=== PATIENT | female | born 1965 | race African-American/Black ===

== ENCOUNTER 2018-04-23 11:45 | Emergency (ER) | payer MEDICAID ==
[~2018-04-23] VITALS: Ht 160 cm; Wt 82.0 kg
[2018-04-23] MEDS ORDERED: HYDROCODONE/ACETAMINOPHEN 5/325MG TABLET PO ONE (12:30)
[2018-04-23 14:28] VITALS: BP 133/73
== END 2018-04-23 14:34 | disposition home or self-care (01) ==
LOC: ER 11:45 → EDBD 11:45 → ER 14:34
DX: S70.02XA Contusion of left hip, initial encounter (principal); E11.9 Type 2 diabetes mellitus without complications; W01.0XXA Fall on same level from slipping, tripping and stumbling without subsequent striking against object, initial encounter; Y93.89 Activity, other specified; Y92.89 Other specified places as the place of occurrence of the external cause; Y99.8 Other external cause status
CPT/HCPCS: 73502; 99284